=== PATIENT | female | born 1945 | race Caucasian/White ===

== ENCOUNTER → 2017-05-14 | Outpatient (CLI) | payer OTHER | LOC: BRMIMAGING 13:10 | PROVIDERS: ATTEND Family Medicine | DX: Z13.820 Encounter for screening for osteoporosis (principal); M81.0 Age-related osteoporosis without current pathological fracture ==

== ENCOUNTER 2018-04-02 08:30 | Day surgery (SDC) | payer OTHER ==
--- NOTE | 2018-03-04 13:21 | GHP ---
[f rep st] PREOP HISTORY AND PHYSICAL CHIEF COMPLAINT: Silicone breast implant rupture and capsular contracture. HISTORY OF PRESENTING COMPLAINT: The patient is a 72-year-old lady who originally had breast augmentation in 1985. These were silicone gel implants. She had several closed capsulotomies performed in the early years. In the past 15 years or so, she has had a lot of problems with discomfort and firmness of the breast implants. She reports that she fell on the right breast implant several months ago and noticed that it was softer for a while. She has finally reached a point where she has decided she wants the implants and the associated capsular tissue removed. PAST MEDICAL HISTORY: Generally unremarkable. She is a nonsmoker with no cardiac or respiratory history. PAST SURGICAL HISTORY: Includes breast implants, liposuction, blepharoplasty. Four years ago she had a hysterectomy during the workup for which she had apparently some abnormality on EKG, which led to an exercise stress test which was negative. ALLERGIES: Penicillin. MEDICATIONS: Synthroid, Lexapro, and Prolia injections every 6 months. EXAMINATION: GENERAL: She is a pleasant, healthy-looking, 72-year-old female. CARDIOVASCULAR: Heart sounds are normal. RESPIRATORY: Chest is clear with good air entry. BREASTS: Bilateral Rueda 4 capsular contracture. IMPRESSION: Fit for procedure. PLAN: Bilateral capsulectomy and removal of breast implants. /[id number]/MODL MTDD
[2018-04-02] MEDS ORDERED: LIDO/EPI 1% **for epidural** 30 ML SDV ONE (09:13)
[2018-04-02] MEDS ORDERED: LIDOCAINE 1% 2 ML INJ ID PRN (09:19)
[2018-04-02] MEDS ORDERED: LR 1,000 ML IV ONE (09:19)
--- NOTE | 2018-04-02 09:49 | PDANEPAE ---
ANE Past Medical History - Cardiovascular History Hx Hypertension: No Hx Arrhythmias: No Hx Chest Pain: No Hx Coronary Artery / Peripheral Vascular Disease: No Hx CHF / Valvular Disease: No Hx Palpitations: No - Pulmonary History Hx COPD: No Hx Asthma/Reactive Airway Disease: No Hx Recent Upper Respiratory Infection: No Hx Oxygen in Use at Home: No Hx Sleep Apnea: Yes Sleep Apnea Screening Result - Last Documented: Negative Pulmonary History Comment: DX BAUTISTA NO CURRENT TREATMENT - Neurologic History Hx Cerebrovascular Accident: No Hx Seizures: No Hx Dementia: No - Endocrine History Hx Diabetes: No Hypothyroid: Yes Hyperthyroid: No Obesity: no Endocrine History Comment: HYPOTHYROID - Renal History Hx Renal Disorders: No - Liver History Hx Hepatic Disorders: No - Neurological & Psychiatric Hx Hx Neurological and Psychiatric Disorders: Yes Neurological / Psychiatric History Comment: ANXIETY - Cancer History Hx Cancer: Yes Cancer History Comment: SKIN - Congenital Disorder History Hx Congenital Disorders: No - GI History Hx Gastrointestinal Disorders: Yes Gastrointestinal History Comment: INTERMITTENT ISSUES WITH SWALLOWING - Other Health History Other Health History: ECZEMA. RUPTURE OF BREAST IMPLANTS. OSTEOPOROSIS. LT SHLDR ROM POST HUMMERAL FX - Chronic Pain History Chronic Pain: Yes (CORIN BREAST) - Surgical History Prior Surgeries: HYSTERECTOMY 2012. BREAST AUGMENTATION 1985. LIPOSUCTION. EYE LASIX ANE Review of Systems Review of Systems: - Exercise capacity METS (RN): 4 METS ANE Patient History - Allergies Allergies/Adverse Reactions: Penicillins Allergy (Verified 04/02/18 09:26) Rash - Home Medications Home Medications: Doxycycline Calcium DAILY 03/13/18 [Last Taken 04/01/18] Flaxseed DAILY 03/13/18 [Last Taken 1 Week Ago ~03/26/18] Herbals/Supplements -Info Only DAILY 03/13/18 [Last Taken 1 Week Ago ~03/26/18] Lexapro DAILY 03/13/18 [Last Taken 04/01/18] [place]-3 DAILY 03/13/18 [Last Taken 1 Week Ago ~03/26/18] Synthroid DAILY 03/13/18 [Last Taken 04/02/18 06:30] - NPO status NPO Since - Liquids (Date): 04/02/18 NPO Since - Liquids (Time): 06:30 NPO Since - Solids (Date): 04/01/18 NPO Since - Solids (Time): 19:30 - Smoking Hx Smoking Status: Never smoked ANE Labs/Vital Signs - Vital Signs Blood Pressure: 145/74 Heart Rate: 67 Respiratory Rate: 14 O2 Sat (%): 95 Height: 157.48 cm Weight: 59.421 kg ANE Physical Exam - Airway Neck exam: FROM Mallampati Score: Class 1 Mouth exam: normal dental/mouth exam - Pulmonary Pulmonary: no respiratory distress - Cardiovascular Cardiovascular: regular rate and rhythym - ASA Status ASA Status: II ANE Anesthesia Plan Anesthesia Plan: GA w LMA
[2018-04-02] MEDS ORDERED: CLINDAMYCIN 900 MG/DEXTROSE 50 ML IV ONE ×2 (10:11→10:15)
--- NOTE | 2018-04-02 10:11 | PDHPUP ---
History & Physical Update H&P update statement: This history and physical update is based on an assessment of the patient which was completed after admission or registration (within 24 hours), but prior to the surgery/procedure. H&P update: H&P reviewed & patient examined, no change in patient's condition since H&P completed
[2018-04-02] MEDS ORDERED: fentaNYL 250 MCG/5 ML INJ ONE (10:25)
[2018-04-02] MEDS ORDERED: PROPOFOL 200 MG/20 ML VIAL ONE ×2 (10:26)
[2018-04-02] MEDS ORDERED: ePHEDrine SULFATE 25 MG/5 ML SYR ONE (10:41)
[2018-04-02] MEDS ORDERED: ONDANSETRON 4 MG/2 ML VIAL ONE ×2 (10:41→12:11)
[2018-04-02] MEDS ORDERED: DEXAMETHASONE 4 MG/ML VIAL ONE (10:41)
--- NOTE | 2018-04-02 12:24 | POSTOPPROG ---
Post Op Note Date of Operation: 04/02/18 Surgeon: Trey Bryant Anesthesiologist: mychal Pre-op Diagnosis: Capsular contracture silicone gel implants Post-op Diagnosis: same with silicone gel bleed Procedure: capsulectomy and removal bilateral breast implants Inf/Abcess present in the surg proc area at time of surgery?: No EBL: Minimal
[2018-04-02] MEDS ORDERED: HYDROCODONE/APAP 5/325 TAB PO PRN ×2 (12:26→12:33)
[2018-04-02] MEDS ORDERED: NALOXONE HCL 0.4 MG/ML INJ IVP PRN (12:33)
[2018-04-02] MEDS ORDERED: LABETALOL HCL 5 MG/ML 20 ML MDV IVP PRN (12:33)
[2018-04-02] MEDS ORDERED: ONDANSETRON 4 MG/2 ML VIAL IVP PRN (12:33)
[2018-04-02] MEDS ORDERED: fentaNYL 100 MCG/2 ML INJ IVP PRN (12:33)
--- NOTE | 2018-04-02 12:33 | POSTANESTH ---
Post Anesthetic Evaluation Cardiovascular Status: Normal, Stable Respiratory Status: Normal, Stable Level of Consciousness/Mental Status: Can Participate in Eval Pain Control: Adequate, Prn Tx Ordered Nausea/Vomiting Control: Adequate, Prn Tx Ordered Complications Possibly Related to Anesthesia: None Noted
--- NOTE | 2018-04-02 13:22 | GOP ---
DATE OF OPERATION: 04/02/2018 SURGEON: Trey Bryant MD PREOPERATIVE DIAGNOSIS: Bilateral silicone gel breast implant capsular contracture with possible rupture. POSTOPERATIVE DIAGNOSIS: Bilateral silicone gel breast implant capsular contracture with silicone gel bleed. PROCEDURE PERFORMED: Bilateral Capsulectomy and Removal of Breast Implants FINDINGS: DESCRIPTION OF PROCEDURE: With patient lying supine under general anesthesia, anterior chest region was prepped and draped in the usual fashion. Incisions were made in the existing inframammary scars, and dissection was taken down through underlying tissue to the firm, calcified implant capsules. The capsules were freed up completely from surrounding tissue. On the right side, a small janae in the capsule was made and a small amount of silicone was expressed, but none contaminated the pocket. The implants along with the capsules were removed intact. Bleeders were controlled with electrocautery. 10 mm flat Ajith-Corral drains were placed bilaterally. Closure was carried out with 3-0 Vicryl deep sutures, followed by 3-0 Vicryl inverted dermal sutures and 3-0 Prolene running subcuticular sutures. Dressings of Steri- Strips and gauze were applied. The procedure was tolerated well. Estimated blood loss less than 5 mL. Examination of the capsules themselves revealed that the small amount of silicone leaking on the right side was coming from a janae in the implant created intraoperatively, but in both cases, there was a thin layer of gel that had diffused out of the implants, and both implants had a yellow to orange discoloration within them. /[id number]/MODL MTDD
[2018-04-02] MEDS: HYDROCODONE/APAP 5/325 TAB PO PRN ×2 (13:39→14:18)
[2018-04-02 14:42] VITALS: BP 118/59
== END 2018-04-02 14:27 | disposition home or self-care (01) ==
LOC: FSGY 08:30
PROVIDERS: ATTEND Plastic Surgery
DX: T85.44XA Capsular contracture of breast implant, initial encounter (principal); T85.43XA Leakage of breast prosthesis and implant, initial encounter
CPT/HCPCS: J1100; J2405; J2704; J3010